=== PATIENT | female | born 1955 | race Caucasian/White ===

== ENCOUNTER → 2017-12-05 | Outpatient (CLI) | payer OTHER ==
--- NOTE | 2017-12-05 08:27 | DIAGNOSTIC IMAGING REPORT ---
SINUS CT CT DOSE: 392.54 mGy.cm HISTORY: CHRONIC SINUSITIS TECHNIQUE: Multiaxial CT images of the paranasal sinuses were performed and reformatted in the coronal plane without the use of contrast. A dose lowering technique was utilized adhering to the principles of ALARA. COMPARISON: Sinus CT 01/27/2015. FINDINGS: The frontal sinuses, ethmoid air cells, sphenoid sinuses, and left maxillary sinus are clear. Stable 1.3 cm retention cyst within the floor the right maxillary sinus. No fluid levels within the paranasal sinuses. The mastoid air cells are clear. The bilateral ostiomeatal units are patent. Left nasal septal deviation, unchanged. The visualized brain parenchyma is within normal limits. The orbits are unremarkable. IMPRESSION: No significant change compared to the prior study. Stable 1.3 cm retention cyst within the right maxillary sinus. Electronically signed by: Gonzalez Patton M.D. 12/05/2017 8:25 AM Dictated Date/Time: 12/05/2017 8:21 AM
== END | disposition home or self-care (01) ==
LOC: C.CTS 07:57
PROVIDERS: ATTEND Internal Medicine Infectious Disease
DX: J32.9 Chronic sinusitis, unspecified (principal); Z86.19 Personal history of other infectious and parasitic diseases; B20 Human immunodeficiency virus [HIV] disease